=== PATIENT | male | born 1995 | race Asian ===

== ENCOUNTER 2024-05-24 16:29 | Emergency (ER) | payer BC ==
[~2024-05-24] VITALS: Ht 182.9 cm; Wt 80.0 kg
[2024-05-24 16:52] VITALS: O2SAT 100
[2024-05-24] MEDS: SODIUM CHLORIDE 0.9% 1,000 ML IV ONE (17:31)
[2024-05-24] MEDS: CEFTRIAXONE 1GM/50ML 50 ML IV NR (17:35)
[2024-05-24 18:30] LABS: HEMATOCRIT. 43.4 % (42.0-52.0); HEMOGLOBIN. 14.7 g/dL (14.0-18.0); MEAN CORPUSCULAR HEMOGLOBIN 28.9 pg (28.0-32.0); MEAN CORPUSCULAR HGB CONC 33.9 g/dL (31.0-37.0); MEAN CORPUSCULAR VOLUME 85.3 fL (80.0-94.0); MEAN PLATELET VOLUME 7.3 fl (7.4-10.4); PLATELET 239 x1000/uL (130-400); RED BLOOD CELL COUNT 5.09 mill/uL (4.7-6.1); RED CELL DISTRIBUTION WIDTH 12.7 % (11.6-14.6); WHITE BLOOD COUNT 4.1 x1000/uL (4.5-11.0)
[2024-05-24 18:33] LABS: DIFFERENTIAL COMMENT 1
[2024-05-24 18:35] LABS: CHLORIDE 100 mEq/L (98-107); POTASSIUM 3.7 mEq/L (3.5-5.1); SODIUM 137 mEq/L (136-145)
[2024-05-24 18:36] LABS: CARBON DIOXIDE 29 mEq/L (21-32)
[2024-05-24 18:37] LABS: CALCIUM 9.6 mg/dL (8.7-10.4)
[2024-05-24] MEDS: KETOROLAC 15MG/ML VIAL IV ONE (18:39)
[2024-05-24 18:41] LABS: GLUCOSE 98 mg/dL (70-105); UREA NITROGEN BLOOD 15 mg/dL (9-23)
[2024-05-24 19:08] LABS: CLARITY URINE CLEAR (CLEAR); COLOR URINE YELLOW (YELLOW); GLUCOSE URINE NEGATIVE (NEGATIVE); KETONES URINE TRACE (NEGATIVE); LEUKOCYTE ESTERASE URINE NEGATIVE (NEGATIVE); NITRITE URINE NEGATIVE (NEGATIVE); OCCULT BLOOD URINE NEGATIVE (NEGATIVE); PROTEIN URINE NEGATIVE (NEGATIVE); SPECIFIC GRAVITY URINE 1.009 (1.005-1.030); UROBILINOGEN URINE 1 E.U./dL (0.2-1.0)
[2024-05-24] MEDS ORDERED: CEPH500T MT (19:14)
[2024-05-24] MEDS ORDERED: AMOX1TAB16 MT (19:17)
[2024-05-24 19:26] LABS: PLATELET ESTIMATE NORMAL
[2024-05-24 19:40] VITALS: BP 145/81; PULSE 85; RESP 18; TEMP 36.89184; O2SAT 100
== END 2024-05-24 19:40 | disposition home or self-care (01) ==
LOC: ER 16:29
DX: I88.9 Nonspecific lymphadenitis, unspecified (principal)
CPT/HCPCS: 80048; 81003; 85025; 36415; 96365; 96375; 99284; J0696; J1885; J7030

== ENCOUNTER 2025-01-12 14:45 | Emergency (ER) | payer BC ==
[~2025-01-12] VITALS: Ht 185.4 cm; Wt 82.0 kg
[~2025-01-12 14:45] MED LIST: AMOX1TAB16 MT
[2025-01-12 14:47] VITALS: O2SAT 99
[2025-01-12] MEDS ORDERED: IBUP-2029 MT (15:08)
[2025-01-12] MEDS: IBUPROFEN 600MG TABLET PO ONE (15:08)
[2025-01-12 15:13] VITALS: BP 126/70; PULSE 98; RESP 16; TEMP 36.8; O2SAT 100
== END 2025-01-12 15:17 | disposition home or self-care (01) ==
LOC: ER 14:45
DX: S63.501A Unspecified sprain of right wrist, initial encounter (principal); W18.39XA Other fall on same level, initial encounter; Y93.89 Activity, other specified; Y92.89 Other specified places as the place of occurrence of the external cause; Y99.8 Other external cause status
CPT/HCPCS: 73110; 73130; 99284